=== PATIENT | male | born 1965 | race Caucasian/White ===

== ENCOUNTER 2021-01-05 16:30 | Observation (INO) ==
[2021-01-05] MEDS ORDERED: ONDANSETRON HCL/PF 2 MG/ML VIAL IV ONE (16:53)
[2021-01-05] MEDS ORDERED: KETOROLAC TROMETHAMINE 30 MG/ML VIAL IV ONE (16:54)
[2021-01-05] MEDS ORDERED: DIATRIZOATE MEGLUMINE, SODIUM 30 ML BTL PO ONE (16:54)
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
[2021-01-05 17:08] LABS: Hematocrit 42.8 % (42.0-52.0); Hemoglobin 13.7 gm/dL (13.5-18.0); Mean Cell Volume 84.3 fl (78-100); Mean Platelet Volume 9.9 fl (8-11.3); Platelet Count 293 K/mm3 (150-450); Red Blood Count 5.08 M/mm3 (4.7-6.0); Red Cell Distribution Width 14.2 % (11.5-14.0); White Blood Count 22.5 K/mm3 (4.0-10.5)
[2021-01-05 17:16] LABS: Total Cells Counted 100
[2021-01-05 17:28] LABS: Albumin * 3.8 gm/dl (3.4-5.0); Anion Gap 12.8 mmol/L (6.8-13.8); Atypical (Reactive) Lymph 1 % (0-2); BUN/Creatinine Ratio 15.3 (9.0-21.6); Band 4 % (0-2.0); Basophil 1 % (0-1); Bilirubin, Total 0.8 mg/dL (0.0-1.1); Ca. Corrected For Albumin 8.8 mg/dL (8.4-10.2); Carbon Dioxide 28.2 mmol/L (24-32.6); Eosinophil 1 % (0-3); Lymphocyte 6 % (20-51); Monocyte 5 % (0-9); Neutrophil 82 % (42-75); Neutrophil # 18.5 K/mm3 (1.3-6.0); Total Protein 7.9 gm/dL (6.2-8.2)
[2021-01-05 17:30] LABS: Platelet Estimate Normal (NORMAL); RBC Morphology Normal (NORMAL)
[2021-01-05 17:33] LABS: CRP 17.2 mg/dL (0.0-0.9)
[2021-01-05] MEDS ORDERED: NORMAL SALINE 1,000 ML IV PRN (18:44)
[2021-01-05 18:54] LABS: Urine Bilirubin 1 mg/dl (NEGATIVE); Urine Ketone 15 mg/dL (NEGATIVE); Urine Nitrite Negative (NEGATIVE); Urine Protein 15 mg/dL (NEGATIVE); Urine Specific Gravity >=1.030 SP.GR. (1.005-1.030); Urine Urobilinogen Normal (NORMAL); Urine pH 5.5 pH (5.0-7.0)
[2021-01-05 19:09] LABS: Urine Blood 5 /ul (NEGATIVE)
[2021-01-05 19:10] LABS: Urine Appearance Clear (CLEAR); Urine Bacteria TRACE; Urine Color Orange; Urine Mucus Many - 3+; Urine RBC TRACE /hpf (0-5); Urine Squamous Epithelial Cell TRACE /hpf; Urine WBC 0-5 /hpf (0-5)
[2021-01-05] MEDS ORDERED: CIPROFLOXACIN IN 5 % DEXTROSE 400 MG/200 ML BAG IV SCH (19:45)
[2021-01-05] MEDS: metroNIDAZOLE/SODIUM CHLORIDE 500 MG/100 ML BAG IV SCH (21:02)
[2021-01-05] MEDS ORDERED: NORMAL SALINE 1,000 ML IV ONE (21:22)
[2021-01-06] MEDS: metroNIDAZOLE/SODIUM CHLORIDE 500 MG/100 ML BAG IV SCH (02:46)
[2021-01-06] MEDS ORDERED: CIPROFLOXACIN IN 5 % DEXTROSE 400 MG/200 ML BAG IV SCH (07:45)
[2021-01-06] MEDS ORDERED: metroNIDAZOLE 500 MG TABLET PO SCH (08:45)
[2021-01-06] MEDS ORDERED: CIPROFLOXACIN HCL 500 MG TABLET PO SCH (09:00)
[2021-01-06 09:17] LABS: Hematocrit 40.1 % (42.0-52.0); Hemoglobin 12.4 gm/dL (13.5-18.0); Mean Cell Volume 86.2 fl (78-100); Mean Corpuscular Hemoglobin 26.7 pg (27-31); Mean Corpuscular Hgb Conc 30.9 g/dl (32-36); Mean Platelet Volume 9.9 fl (8-11.3); Platelet Count 267 K/mm3 (150-450); Red Blood Count 4.65 M/mm3 (4.7-6.0); Red Cell Distribution Width 14.2 % (11.5-14.0); White Blood Count 22.1 K/mm3 (4.0-10.5)
[2021-01-06 09:20] LABS: Total Cells Counted 100
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
[2021-01-06 09:44] LABS: Band 1 % (0-2.0); Lymphocyte 10 % (20-51); Monocyte 6 % (0-9); Neutrophil 83 % (42-75); Neutrophil # 18.3 K/mm3 (1.3-6.0); Platelet Estimate Normal (NORMAL); RBC Morphology Normal (NORMAL)
[2021-01-06] MEDS ORDERED: metroNIDAZOLE/SODIUM CHLORIDE 500 MG/100 ML BAG IV SCH ×2 (11:45)
[2021-01-06 13:07] VITALS: BP 116/68
== END 2021-01-06 13:25 | disposition home or self-care (01) ==
LOC: ER 16:30 → MS 16:30
PROVIDERS: ADMIT Internal Medicine; ATTEND Internal Medicine